=== PATIENT | male | born 1965 | race Caucasian/White ===

== ENCOUNTER 2019-02-21 07:58 | Day surgery (SDC) | payer OTHER ==
[2019-02-15 10:28] VITALS: BMI 27.3
--- NOTE | 2019-02-21 07:20 | HP ---
History & Physical Update - History History: No Change - Physical Physical: No Change - Assessment Assessment: No Change - Plan Plan: No Change
[2019-02-21] MEDS ORDERED: MIDAZOLAM HCL 2 MG/2 ML SINGLE DOSE VIAL ONE ×2 (08:16→11:17)
[2019-02-21] MEDS ORDERED: BUPIVACAINE HCL/PF 2.5 MG/ML - 30 ML VIAL IJ ONE (08:17)
[2019-02-21] MEDS ORDERED: BUPIVACAINE HCL/PF 0.5% (5 MG/ML) 30 ML VIAL IJ ONE (08:21)
[2019-02-21] MEDS ORDERED: oxyCODONE HCL 10 MG SUSTAINED ACTING TABLET PO STA (08:33)
[2019-02-21] MEDS ORDERED: oxyCODONE HCL 5 MG TABLET PO PRN ×2 (09:17)
[2019-02-21] MEDS ORDERED: ONDANSETRON 4 MG/2 ML VIAL IVPUSH PRN (09:17)
[2019-02-21] MEDS ORDERED: LACTATED RINGERS SOLUTION 1,000 ML IV SCH (09:30)
[2019-02-21] MEDS ORDERED: DEXAMETHASONE SOD PHOSPHATE 4 MG/1 ML VIAL ONE (11:16)
[2019-02-21] MEDS ORDERED: ONDANSETRON 4 MG/2 ML VIAL ONE (11:16)
[2019-02-21] MEDS ORDERED: ceFAZolin SODIUM 1 GM VIAL ONE (11:16)
[2019-02-21] MEDS ORDERED: KETOROLAC TROMETHAMINE 30 MG/1 ML VIAL ONE (11:16)
[2019-02-21] MEDS ORDERED: LIDOCAINE 1%/EPI 1:100000 (50 ML MULTI DOSE VIAL) INF ONE (12:19)
[2019-02-21] MEDS ORDERED: ACETAMINOPHEN 1000 MG/100 ML VIAL (NON FORMULARY) IVPB ONE (13:00)
[2019-02-21] MEDS ORDERED: GUM MASTIC/STORAX/MSAL/ALCOHOL 1 DRP DROPSBTL MC ONE (13:00)
--- NOTE | 2019-02-21 13:26 | SURG ---
Surgery Addiction Treatment Counselor Note Addiction Treatment Counselor: Kenney Bernstein PA-C Date of Service: 02/21/19 Diagnosis: Low back pain, herniated L5/S1 disc, right lower extremity radiculopathy Procedure: L5-S1 laminectomy (bilateral) w/ Right L5/S1 microdisectomy I was present for the entirety of the operative procedure. For further detail, please refer to operative report. Visit type - Case Type Case Type: Scheduled - New patient This patient is new to me today: Yes Date on this admission: 02/21/19
--- NOTE | 2019-02-21 13:26 | OP ---
Operative Note - Note: Operative Date: 02/21/19 Pre-Operative Diagnosis: LBP, HNP, RLE radiculopathy Operation: L5-S1 laminectomy (bilateral) w/ Right L5/S1 microdisectomy Post-Operative Diagnosis: Same as Pre-op Surgeon: John Mcelroy Mobile Sales Technician: Kenney Bernstein Anesthesiologist/AUT[employer] SPRING REPAIRER: Kelechi Presley Anesthesia: Spinal Specimens Removed: Right L5/S1 microdisectomy Estimated Blood Loss (mls): 35 Fluid Volume Replaced (mls): 400 (LR) Operative Report Dictated: Yes
[2019-02-21] MEDS ORDERED: ACETAMINOPHEN INJECTION 100 ML IVPB ONE (13:29)
--- NOTE | 2019-02-21 14:04 | OP ---
DATE OF OPERATION: 02/21/2019 PREOPERATIVE DIAGNOSIS: Spinal stenosis L5-S1. POSTOPERATIVE DIAGNOSIS: Spinal stenosis L5-S1. PROCEDURE PERFORMED: Laminectomy L5-S1. SURGEON: John Mcelroy MD SOCIETY REPORTER: MARCO ANTONIO Pleitez ESTIMATED BLOOD LOSS: 50 mL. INTRAVENOUS FLUIDS: Per anesthesia. ANESTHESIA: Spinal/TLIP block. COMPLICATIONS: There were none. DISPOSITION: Patient was brought to the PACU in stable condition. INDICATIONS FOR SURGERY: Patient is a 53-year-old gentleman who has been suffering from pain from his back down his legs. X-rays and MRI were completed, which noted that he had spinal stenosis at L5-S1. He had gone through an exhaustive course of treatment for this, which included medications, physical therapy as well as injections. Unfortunately, his pain continued to persist despite all this. At this point, risks, benefits, alternatives were discussed, and the patient consented to surgery. DESCRIPTION OF PROCEDURE: The patient was brought to the operating room by the anesthesia staff. After appropriate patient identification was performed, spinal anesthesia was given. A TLIP block was also given. Patient was able to position himself prone onto the OR table with all areas and bony prominences well padded at this time. Two needles were placed into his back to michaelle off the L5-S1 segments. X-ray was taken to confirm this was correct. Needle was removed, and 10 mL of lidocaine with epinephrine was injected into his back. At this time, his back was prepped and draped in a sterile manner. At this point, a time-out was completed and an incision made from the top of L5 down to the bottom of S1. Dissection was carried down to the fascia. Fascia was split open at this time, and appropriate retractors were then placed in. A spinal needle was placed onto the L5 lamina to michaelle off the L5-S1 level. X-ray was taken to confirm this was correct. Needle was removed, and the interspinous ligament at L5-S1 was removed. Portions of the L5-S1 lamina were removed. The flavum was removed. The S1 nerve root was mobilized medially. Disk herniation was noted and removed. By the end of the procedure, the S1 nerve root appeared to be well decompressed. All bleeding was well controlled at this time. Steroid was placed over the nerve root. FloSeal was placed over that. The fascia was closed with a No. 1 Vicryl suture. The subcutaneous tissue was closed with 2-0 Vicryl suture. The skin was closed with 3-0 Monocryl suture. Dermabond was applied. Steri-Strips were applied. A sterile dressing was applied. The patient was placed supine on the OR bed and brought to the PACU in stable condition. Raiza [id number]
[2019-02-21 14:47] VITALS: TEMP 98.4
[2019-02-21 15:52] VITALS: BP 130/80; PULSE 82
--- NOTE | 2019-02-23 15:20 | PATH ---
Surgical Pathology Report Patient Name: RENEE SCHROEDER Med. Rec. #: [id number] /Age/Gender: 1965 (Age: 53) / M Account: [id number] [facility] Taken: 02/21/2019 Received: 02/21/2019 Reported: 02/23/2019 Physicians: John Mcelroy M.D. Specimen(s) Received DISC L5-S1 Clinical History Spinal stenosis Final Diagnosis DISC, L5-S1, LAMINECTOMY: CARTILAGE WITH DEGENERATIVE CHANGES. Electronically Signed Mireya Lamb M.D. Gross Description Received in formalin labeled "disc L5-S1," is a 0.7 x 0.5 x 0.1 cm aggregate of angel fragments of fibrocartilaginous tissue. The specimen is submitted in toto in one cassette. 02/22/201902/22/2019
== END 2019-02-21 15:56 | disposition home or self-care (01) ==
LOC: FASU 07:58
PROVIDERS: ATTEND Orthopaedic Surgery Orthopaedic Surgery of the Spine
PROC: 01NB0ZZ Release Lumbar Nerve, Open Approach (ICD-10-PCS; principal; 2019-02-21 12:11)
DX: M48.07 Spinal stenosis, lumbosacral region (principal)
CPT/HCPCS: 72100-TC-FY; 76000-TC-FY; 88304-TC; 94760; J0131